=== PATIENT | female | born 1985 | race Caucasian/White ===

== ENCOUNTER 2020-06-25 06:49 | Emergency (ER) | payer OTHER ==
[2020-06-25 07:05] VITALS: BP 130/68; PULSE 83; TEMP 98.3; BMI 30.9
[2020-06-25] MEDS ORDERED: METOCLOPRAMIDE HCL INJECTION 10 MG/2 ML VIAL IVPUSH STA (07:22)
[2020-06-25] MEDS ORDERED: SODIUM CHLORIDE 1,000 ML IV ONE (07:22)
[2020-06-25] MEDS ORDERED: ACETAMINOPHEN 1000 MG/100 ML VIAL (NON FORMULARY) IVPB ONE (07:33)
[2020-06-25] MEDS ORDERED: METOCLOPRAMIDE HCL INJECTION 10 MG/2 ML VIAL ONE (07:35)
[2020-06-25] MEDS ORDERED: ACETAMINOPHEN INJECTION 100 ML IVPB ONE (07:38)
== END 2020-06-25 08:40 | disposition left against medical advice (07) ==
LOC: JER 06:49
PROC: 3E033NZ Introduction of Analgesics, Hypnotics, Sedatives into Peripheral Vein, Percutaneous Approach (ICD-10-PCS; principal; 2020-06-25)
PROC: 3E033GC Introduction of Other Therapeutic Substance into Peripheral Vein, Percutaneous Approach (ICD-10-PCS; 2020-06-25)
PROC: 3E0337Z Introduction of Electrolytic and Water Balance Substance into Peripheral Vein, Percutaneous Approach (ICD-10-PCS; 2020-06-25)
DX: R10.9 Unspecified abdominal pain (principal); G43.009 Migraine without aura, not intractable, without status migrainosus
CPT/HCPCS: 96361; 96374; 96375; 99285-25

== ENCOUNTER 2021-05-27 03:41 | Emergency (ER) | payer OTHER ==
[2021-05-27 04:04] VITALS: BMI 31.8
[2021-05-27] MEDS ORDERED: ACETAMINOPHEN 1000 MG/100 ML VIAL IVPB ONE (05:13)
[2021-05-27] MEDS ORDERED: LACTATED RINGERS SOLUTION 1000 ML INFUS.BAG IV ONE (05:13)
[2021-05-27] MEDS ORDERED: ACETAMINOPHEN INJECTION 100 ML IVPB ONE (05:23)
[2021-05-27 05:54] LABS: BASO % 0.3 % (0-2.0); EOS % 1.3 % (0-4.5); HEMOGLOBIN 14.5 GM/dL (10.7-15.3); MCH 32.3 pg (25.7-33.7); MCHC 34.5 g/dl (32.0-36.0); MEAN CELL VOLUME 93.6 fl (80-96); MEAN PLT VOLUME 8.5 fl (7.5-11.1); MONO % 9.8 % (3.8-10.2); NEUT % 68.6 % (42.8-82.8); PLATELET COUNT 186 10^3/uL (134-434); RBC 4.49 M/mm3 (3.60-5.2); RDW 13.1 % (11.6-15.6); WHITE BLOOD COUNT 4.8 K/mm3 (4.0-10.0)
[2021-05-27 07:00] VITALS: BP 126/83; PULSE 81; TEMP 98.2
== END 2021-05-27 07:42 | disposition home or self-care (01) ==
LOC: JER 03:41
PROC: 3E033GC Introduction of Other Therapeutic Substance into Peripheral Vein, Percutaneous Approach (ICD-10-PCS; principal; 2021-05-27)
DX: R06.02 Shortness of breath (principal)
CPT/HCPCS: 36415; 71045-TC-FY; 82550; 84484; 85025; 93005; 93010; 99285-25; J0131